=== PATIENT | male | born 1960 | race Hispanic/Latino ===

== ENCOUNTER 2022-01-22 18:49 | Emergency (ER) | payer OTHER ==
[~2022-01-22] VITALS: Ht 162.6 cm; Wt 104.3 kg
[2022-01-22] MEDS ORDERED: ALBUTEROL/IPRATROPIUM 3 ML NEB NEB ONE (19:30)
[2022-01-22] MEDS ORDERED: DEXAMETHASONE SOD PHOS 10 MG/1 ML VIAL IM ONE (19:30)
[2022-01-22] MEDS ORDERED: METHYLPREDNISOLONE SOD SUCC 125 MG/2ML VIAL IV ONE (19:45)
[2022-01-22] MEDS ORDERED: ACETAMINOPHEN 325 MG TAB PO ONE (19:45)
[2022-01-22 20:00] LABS: BASOPHILS # (AUTO) 0.1 (0.0-0.1); EOSINOPHILS # (AUTO) 0.1 (0.0-0.4); EOSINOPHILS % 2.5 % (0.0-6.0); HEMATOCRIT 38.3 % (38.2-49.6); HEMOGLOBIN 13.4 g/dL (14.0-18.0); LYMPHOCYTES # (AUTO) 0.6 (1.0-3.2); LYMPHOCYTES % 11.7 % (18.0-39.1); MEAN CORPUSCULAR HEMOGLOBIN 30.7 pg (28-32); MEAN CORPUSCULAR VOLUME 87.6 fL (81-99); MONOCYTES # (AUTO) 0.4 (0.2-0.8); MONOCYTES % 8.3 % (4.4-11.3); NEUTROPHILS # (AUTO) 3.9 (2.1-6.9); NEUTROPHILS % 75.5 % (38.7-80.0); PLATELET COUNT 177 x10e3/uL (140-360); RED BLOOD COUNT 4.37 x10e6/uL (4.3-5.7); RED CELL DISTRIBUTION WIDTH 12.3 % (11.7-14.4)
[2022-01-22 20:07] LABS: INR 0.95; PROTHROMBIN TIME 13.6 seconds (11.9-14.5)
[2022-01-22 20:08] LABS: PARTIAL THROMBOPLASTIN TIME 27.5 seconds (23.8-35.5)
[2022-01-22 20:18] LABS: ALBUMIN 3.6 g/dL (3.5-5.0); ALBUMIN/GLOBULIN RATIO 1.2 (0.8-2.0); ANION GAP 14.8 mmol/L (8-16); CALCIUM 8.8 mg/dL (8.4-10.2); CREATININE, SERUM 1.19 mg/dL (0.72-1.25); POTASSIUM 3.8 mmol/L (3.5-5.1)
[2022-01-22] MEDS ORDERED: ALBUTEROL2.5 MG/3 M PO (21:05)
[2022-01-22] MEDS ORDERED: PREDNISONE50 MG PO (21:05)
[2022-01-22] MEDS ORDERED: BENZONATATE200 MG PO (21:05)
[2022-01-22 21:09] LABS: CLARITY,URINE CLEAR (CLEAR); COLOR,URINE YELLOW (YELLOW); KETONES,URINE NEGATIVE (NEGATIVE); LEUKOCYTE ESTERASE ,URINE NEGATIVE (NEGATIVE); NITRITE,URINE NEGATIVE (NEGATIVE); PROTEIN,URINE DIPSTICK NEGATIVE (NEGATIVE); URINE UROBILINOGEN 0.2 mg/dL (0.2 - 1)
[2022-01-22 21:16] LABS: WBC,URINE (MAN) 0-5 /HPF (0-5)
[2022-01-23 00:59] VITALS: BP 160/75
== END 2022-01-22 21:21 | disposition home or self-care (01) ==
LOC: ER 19:18
DX: R50.9 Fever, unspecified (principal); J06.9 Acute upper respiratory infection, unspecified; R06.00 Dyspnea, unspecified; R05.9 Cough, unspecified; I10 Essential (primary) hypertension; J45.909 Unspecified asthma, uncomplicated; F41.9 Anxiety disorder, unspecified
CPT/HCPCS: 36415; 71045; 80053; 81001; 83605; 85025; 85610; 85730; 87040; 87400; 93005; 94799; 99284; J2930; U0002